=== PATIENT | female | born 1985 | race Caucasian/White ===

== ENCOUNTER 2019-04-15 15:08 | Outpatient (CLI) | payer MEDICAID ==
[~2019-04-15] VITALS: Ht 152.4 cm; Wt 80.9 kg
[~2019-04-15 15:08] MED LIST: MIDOL; MOTRIN; THERAFLU; TYLENOL
[2019-04-15 15:21] VITALS: BP 106/61; PULSE 93; RESP 17; Ht 152.4 cm; Wt 80.9 kg
--- NOTE | 2019-04-15 20:07 | PN ---
Triage Information Date/Time 04/15/2019 Reason for visit: DFHR Weeks of Gestation 37 weeks and 1 day /Para 2 para 0 Diabetes: none Hypertention: none Additional information 34-year-old G2, P0 with IUP at 37 weeks and 1 day presents with complaint of decreased movement for the past 3 days. She denies any leaking of fluid, vaginal bleeding the contractions. Denies any other Complaint. Denies any comp occasions during her course. Objective Vital Signs Date Temp Pulse Resp B/P (MAP) Pulse Ox O2 O2 Flow FiO2 Time Delivery Rate 04/15/19 98.1 93 17 106/61 15:21 (76) Heart Rate: 130's Heart Rate Comments Category 1 No contraction on the monitor noted Contractions: None Exam GA: Alert and oriented x4 does not appear to be in any acute distress Abdomen; Soft, gravid, fundal height consider gestational age NST: Category 1 No contraction on the monitor BPP: 07/01 NEHA: 11.2 Results/Medications Imaging Results PROCEDURE: Obstetrical ultrasound for biophysical profile CLINICAL INDICATION: Biophysical profile. . TECHNIQUE: Obstetrical ultrasound of the uterus for biophysical profile. Transabdominal views are obtained. COMPARISON: 04/15/2019 FINDINGS: Single intrauterine gestation. Presentation: Cephalic. Placenta: Posterior - right lateral No evidence of placental abruption. No evidence of placenta previa. breathing movement = 2/2 tone = 2/2 motion = 2/2 NEHA = 2/2 NEHA = 11.2 cm heart rate: 138 beats per minute IMPRESSION: Single intrauterine gestation. Biophysical profile 07/01 PROCEDURE: Obstetrical ultrasound. CLINICAL INDICATION: , evaluation. Pelvic pain. TECHNIQUE: Transabdominal sonographic images of the uterus obtained after first trimester, greater than 14 weeks gestation. Single intrauterine gestation present. Complete anatomic survey is not performed in this examination; if needed an additional dedicated examination can be performed for complete anatomic survey. COMPARISON: US 12/24/2018 FINDINGS: Single intrauterine gestation. There is a cephalic presentation. Measurements were made in order to determine age. The results are as follows: BPD = 35 weeks 4 day(s) HC = 35 weeks 1 day(s) AC = 39 weeks 1 day(s) FL = 37 weeks 6 day(s) NEHA (cm) = not measured Heart rate = 130 beats per minute The placenta is posterior - right lateral. There is no evidence for an abruption or placenta previa. Ovaries are not visualized. IMPRESSION: Single intrauterine gestation of approximately 37 weeks 0 days by ultrasound criteria. [place] estimated weight = 3346 g; 74 percentile for gestational age of 37 weeks 2 days. Disposition: Discharge Assessment/Plan IUP at 37 weeks and 1 day decreased movement testing reassuring Stable for discharge home. Labor precautions kick count discussed with patient Recommended patient to follow-up within 24 to 40 hours per primary OB office Return to triage in 3 days for NST/BPP Patient verbalized understanding. All questions answered to patient's best satisfaction LUIS ROBINS MD April 15, 2019 20:07
== END 2019-04-15 17:45 | disposition home or self-care (01) ==
LOC: OBT 15:08 → L-D 15:10 → OBT 17:45
PROVIDERS: ATTEND Obstetrics & Gynecology
DX: O36.8130 Decreased fetal movements, third trimester, not applicable or unspecified (principal); O09.523 Supervision of elderly multigravida, third trimester; Z3A.37 37 weeks gestation of pregnancy
CPT/HCPCS: 76815; 76818; Z7500; G0463

== ENCOUNTER 2019-04-18 14:18 | Outpatient (CLI) | payer MEDICAID ==
[~2019-04-18] VITALS: Ht 152.4 cm; Wt 82.9 kg
[2019-04-18] MEDS ORDERED: PREN-93 PO (14:59)
[2019-04-18 15:00] VITALS: BP 108/64; PULSE 85; RESP 18; Ht 152.4 cm; Wt 82.9 kg
--- NOTE | 2019-04-18 15:58 | TRIAGE ---
OB Triage Datetime Report Generated by CPN: 04/18/2019 15:57 Datetime: 04/18/2019 15:30 Stage of : OB Triage Maternal Assessment Level of Consciousness: Fully Conscious Labor Evaluation Frequency: 0 Monitor Mode: External Resting Tone Dunnell: Relaxed Heart Rate FHR Baseline Rate: 145 Monitor Mode: External US Variability: Moderate 6-25 bpm Accelerations: 15X15 Decelerations: None Category: Category I Pain Assessment Pain Scale: 0 Pain Goal: 3 Vaginal Exam Membrane Status: Intact Vaginal Bleeding: None Datetime: 04/18/2019 14:57 Assessment Type: Triage Maternal Assessment Level of Consciousness: Fully Conscious DTR's/Clonus: DTRs 2+; No Clonus Headache: Denies Blurred Vision: No Respiratory Effort: Unlabored; Regular Rhythm; Equal Expansion Breath Sounds, Left: Clear and Equal Breath Sounds, Right: Clear and Equal Nausea/Vomiting: Denies RUQ Epigastric Pain: Denies Lower Extremities Edema: None Degree: None Upper Extremities Edema: None Degree: None Facial Edema: None Fall Risk Assessment History of Falling: (0) No Secondary Diagnosis: (0) No Ambulatory Aid: (0) Bedrest/Nurse Assist IV Therapy: (0) No Gait: (0) Normal/Bedrest/Immobile Mental Status: (0) Oriented to Own Ability Fall Score: 0 Fall Risk Score Definition: No Risk: No action required Datetime: 04/18/2019 14:54 Time of Arrival: 04/18/2019 14:10 EGA: 37.5 Arrived By: Ambulatory Arrived From: Home Chief Complaint: PT. HERE FROM HOME FOR F/U NST/BPP FOR DFM Movement: Present Contractions: Denies/Absent Rupture of Membranes: Denies Vaginal Bleeding: None Vaginal Discharge: Denies Recent Sexual Intercouse: Denies Abdominal Trauma: Not Applicable Patient Complaints: None Time Provider Notified: 04/18/2019 15:30 Provider Notified: HADADIAN Initial Plan: NST/BPP Datetime: 04/18/2019 14:53 Monitor Mode: External Monitor Mode: External US Datetime: 04/15/2019 15:52 Pattern: Normal: <= 5 Contractions in 10 Minutes Resting Tone Dunnell: Relaxed Contraction Comments: no uc Heart Rate FHR Baseline Rate: 135 Monitor Mode: External US Variability: Moderate 6-25 bpm Accelerations: 15X15 Decelerations: None Category: Category I Comments: reactive nst Datetime: 04/15/2019 15:20 Assessment Type: Triage Maternal Assessment Level of Consciousness: Fully Conscious DTR's/Clonus: DTRs 2+; No Clonus Headache: Denies Blurred Vision: No Respiratory Effort: Unlabored; Regular Rhythm; Equal Expansion Breath Sounds, Left: Clear and Equal Breath Sounds, Right: Clear and Equal Nausea/Vomiting: Denies RUQ Epigastric Pain: Denies Lower Extremities Edema: None Degree: None Upper Extremities Edema: None Degree: None Facial Edema: None Fall Risk Assessment History of Falling: (0) No Secondary Diagnosis: (0) No Ambulatory Aid: (0) Bedrest/Nurse Assist IV Therapy: (0) No Gait: (0) Normal/Bedrest/Immobile Mental Status: (0) Oriented to Own Ability Fall Score: 0 Fall Risk Score Definition: No Risk: No action required Datetime: 04/15/2019 15:19 Time of Arrival: 04/15/2019 14:50 EGA: 37.2 Arrived By: Ambulatory Arrived From: Office Chief Complaint: C/O decreased fm for 3 days Movement: Decreased Contractions: Denies/Absent Patient Complaints: Other Time Provider Notified: 04/15/2019 17:10 Provider Notified: Initial Plan: nst, bpp, efw
--- NOTE | 2019-04-18 18:45 | PN ---
Triage Information Date/Time Reason for visit: NST and biophysical profile Weeks of Gestation 37 weeks and 5 days /Para Diabetes: none Hypertention: none Objective Vital Signs Date Temp Pulse Resp B/P (MAP) Pulse Ox O2 O2 Flow FiO2 Time Delivery Rate 04/18/19 98.2 85 18 108/64 Room Air 15:00 (79) Heart Rate: 130's Contractions: None Results/Medications Imaging Results Biophysical profile score is as follows: Breathing 2 Movements 2 Tone 2 Fluid volume 2 Amniotic fluid index = 8.4 cm Total biophysical profile score = 8/8 IMPRESSION: Biophysical profile score = 8/8 Disposition: Discharge Assessment/Plan 34 years old 2 para 010 with single intrauterine at 37 weeks and 5 days presented for antepartum testing.She states good movement. She denies nausea, vomiting, shortness of breath, chest pain, headache, visual changes, vaginal bleeding or LOF. -FHR: No sign of metabolic acidosis- Category I -Contractions: None -Ultrasound performed: Normal NEHA, BPP 8 out of 8 -Symptoms and sign of labor, preeclampsia, kick count discussed with patient, she voiced understanding. All of her questions answered. -Patient was discharged home in stable condition with the appropriate discharge instructions provided. I would like patient to have close follow-up with her [facility] physician or outpatient clinic in 1-2 days or return to triage for worsening symptoms or any other urgent concerns. WILBUR LR April 18, 2019 18:45
== END 2019-04-18 16:05 | disposition home or self-care (01) ==
LOC: OBT 14:18 → L-D 14:19 → OBT 16:05
PROVIDERS: ATTEND Obstetrics & Gynecology
DX: O36.8330 Maternal care for abnormalities of the fetal heart rate or rhythm, third trimester, not applicable or unspecified (principal); O09.523 Supervision of elderly multigravida, third trimester; Z3A.37 37 weeks gestation of pregnancy
CPT/HCPCS: 76818; Z7500; G0463

== ENCOUNTER 2019-05-04 22:16 | Outpatient (CLI) | payer MEDICAID ==
[~2019-05-04] VITALS: Ht 152.4 cm; Wt 84.7 kg
[~2019-05-04 22:16] MED LIST changes: -MIDOL; -MOTRIN; +PREN-93 PO; -THERAFLU; -TYLENOL
[2019-05-04 22:32] VITALS: BP 107/67; PULSE 87; RESP 18
[2019-05-04 22:33] VITALS: Ht 152.4 cm; Wt 84.7 kg
--- NOTE | 2019-05-05 01:41 | TRIAGE ---
OB Triage Datetime Report Generated by CPN: 05/05/2019 01:40 Datetime: 05/04/2019 23:39 Contraction Comments: TOCO REMOVED Comments: US REMOVED Datetime: 05/04/2019 23:38 Labor Evaluation Frequency: NONE Monitor Mode: External Resting Tone Loiza: Relaxed Heart Rate FHR Baseline Rate: 140 Monitor Mode: External US Variability: Moderate 6-25 bpm Accelerations: 15X15 Decelerations: None Category: Category I Datetime: 05/04/2019 23:00 Labor Evaluation Frequency: NONE Monitor Mode: External Resting Tone Loiza: Relaxed Heart Rate FHR Baseline Rate: 140 Monitor Mode: External US Variability: Moderate 6-25 bpm Accelerations: 15X15 Decelerations: None Category: Category I Datetime: 05/04/2019 22:37 Stage of : OB Triage Assessment Type: Triage Maternal Assessment Level of Consciousness: Keenly Alert, Responsive DTR's/Clonus: DTRs 2+; No Clonus Headache: Denies Blurred Vision: No Respiratory Effort: Unlabored; Regular Rhythm; Equal Expansion Breath Sounds, Left: Clear and Equal Breath Sounds, Right: Clear and Equal Nausea/Vomiting: Denies RUQ Epigastric Pain: Denies Lower Extremities Edema: None Degree: None Upper Extremities Edema: None Degree: None Facial Edema: None Temperature Route: Oral Fall Risk Assessment History of Falling: (0) No Secondary Diagnosis: (0) No Ambulatory Aid: (0) Bedrest/Nurse Assist IV Therapy: (0) No Gait: (0) Normal/Bedrest/Immobile Mental Status: (0) Oriented to Own Ability Fall Score: 0 Fall Risk Score Definition: No Risk: No action required Pain Assessment Pain Scale: 0 Pain Presence: None/Denies Pain Type: N/A Membrane Status: Intact Datetime: 05/04/2019 22:36 Time of Arrival: 05/04/2019 22:05 EGA: 40.0 Arrived By: Ambulatory Arrived From: Home Chief Complaint: PT PRESENTS TO TRIAGE WITH ORDERS FROM THE CLINIC FOR NST, EFW, NEHA, BPP, VE Movement: Present Contractions: Irregular Rupture of Membranes: Denies Vaginal Bleeding: None Vaginal Discharge: Denies Recent Sexual Intercouse: Denies Abdominal Trauma: Not Applicable Patient Complaints: Other Datetime: 05/04/2019 22:31 Vaginal Exam Dilatation (cms): 0.0 Effacement (%): 0 Station: -3 Exam By: EM Membrane Status: Intact Datetime: 05/04/2019 22:26 Contraction Comments: TOCO APPLIED Comments: US APPLIED Datetime: 04/18/2019 14:57 Fall Score: 0 Fall Risk Score Definition: No Risk: No action required Datetime: 04/18/2019 14:54 EGA: 37.5 Datetime: 04/15/2019 15:20 Fall Score: 0 Fall Risk Score Definition: No Risk: No action required Datetime: 04/15/2019 15:19 EGA: 37.2
--- NOTE | 2019-05-05 07:08 | PN ---
Triage Information Date/Time Reason for visit: Patient is here for NST and BPP Weeks of Gestation Patient is a 34-year-old 2 para 0 at 40 weeks of gestation with estimated date of delivery May 04, 2019 She is here for NST and BPP for postdates Patient reports positive movement, denies vaginal bleeding and leaking fluid, denies uterine contractions /Para 2 para 0 Diabetes: none Hypertention: none Objective Vital Signs Date Temp Pulse Resp B/P (MAP) Pulse Ox O2 O2 Flow FiO2 Time Delivery Rate 05/04/19 98.5 87 18 107/67 Room Air 22:32 (80) Heart Rate: 140's Heart Rate Comments heart rate tracing category 1 Contractions: None Results/Medications Imaging Results PROCEDURE: US OB CLINICAL INDICATION: . Evaluate size and dates. TECHNIQUE: Multiple transabdominal sonographic images of the pelvis and gravid uterus were obtained. The images were reviewed on a PACS workstation. COMPARISON: 04/18/2019. FINDINGS: Gestation: Single viable intrauterine gestation. Cardiac activity: 137 beats per minute. Presentation: Vertex. Placenta: Location: Posterior, grade II Appearance: No previa or abruption. Measurements: BPD = 9.19 cm, 37 weeks 2 days HC = 33.84 cm, 38 weeks 6 days AC = 35.32 cm, 39 weeks 2 days FL = 7.92 cm, 40 weeks 3 days Gestational Age: AUA estimated gestational age: 39 weeks 0 days LMP estimated gestational age: 40 weeks 0 days AUA estimated date of delivery: 05/11/2019 The EFW = 3716 g, 58.3%ile. IMPRESSION: Single live intrauterine gestation of 39 weeks 0 days by ultrasound criteria. Estimated date of delivery of 05/11/2019. .Singh Chan MD, MD Date Time Electronically viewed and signed by .Singh Chan MD, MD on 05/04/2019 23:18 .T/ CC: WILBUR LR [id number] PROCEDURE: Biophysical profile. CLINICAL INDICATION: Pelvic pain. TECHNIQUE: Multiple sonographic images of the pelvis were obtained with transabdominal technique. COMPARISON: 04/18/2019. FINDINGS: There is a single living intrauterine gestation with the fetus in a vertex position. The placenta is posterior in location, grade II. heart tones of 163 beats per minute are identified. There is normal amniotic fluid volume with an NEHA of 10.4 cm. breathing movements = 2 Gross body movements = 2 tone = 2 Qualitative AFV = 2 IMPRESSION: Biophysical profile 8 out of 8. .Singh Chan MD, MD Date Time Electronically viewed and signed by .Singh Chan MD, MD on 05/04/2019 23:19 .T/ CC: WILBUR LR [id number] Disposition: Discharge Assessment/Plan kick count instructions were given Labor precautions were given Patient instructed to return at 7 AM for induction of labor for postdates ASHELY TRAMMELL MD May 05, 2019 07:08
== END 2019-05-04 23:51 | disposition home or self-care (01) ==
LOC: OBT 22:16 → L-D 22:17 → OBT 23:51
PROVIDERS: ATTEND Obstetrics & Gynecology
DX: O36.8330 Maternal care for abnormalities of the fetal heart rate or rhythm, third trimester, not applicable or unspecified (principal); O48.0 Post-term pregnancy; O09.523 Supervision of elderly multigravida, third trimester; Z3A.40 40 weeks gestation of pregnancy
CPT/HCPCS: 76815; 76818; Z7500; G0463

== ENCOUNTER 2019-05-05 08:34 | Inpatient (IN) | payer MEDICAID ==
[~2019-05-05] VITALS: Ht 152.4 cm; Wt 84.8 kg
[2019-05-05 09:17] VITALS: Ht 152.4 cm; Wt 84.8 kg
[2019-05-05] MEDS ORDERED: CARBOPROST 250 MCG INJ IM PRN (09:30)
[2019-05-05] MEDS ORDERED: OXYTOCIN 30 UNITS/LR 500 ML IV PRN (09:30)
[2019-05-05] MEDS ORDERED: OXYTOCIN 30 UNITS/LR 500 ML IV SCH ×2 (09:30)
[2019-05-05] MEDS ORDERED: MISOPROSTOL 200 MCG TAB PR PRN (09:30)
[2019-05-05] MEDS ORDERED: LIDOCAINE 1% (MPF) 30 ML INJ INJ PRN (09:30)
[2019-05-05] MEDS ORDERED: BUTORPHANOL 2 MG INJ IV PRN ×2 (09:30)
[2019-05-05] MEDS ORDERED: METHYLERGONOVINE 0.2 MG INJ IM PRN (09:30)
[2019-05-05] MEDS ORDERED: IBUPROFEN 600 MG TAB PO PRN (09:30)
--- NOTE | 2019-05-05 09:41 | HP ---
Date/Time of Note Date/Time of Note DATE: 05/05/19 TIME: 09:38 OB - History Hx of Present Free Text/Dictation 34 years old 2 para 0-0-1-0 with single intrauterine at 40 weeks and 1 day admitted for induction of labor for postdate. She states good movement. She denies nausea, vomiting, shortness of breath, chest pain, headache, visual changes, vaginal bleeding or LOF. Chief Complaint: Scheduled for induction of labor Estimated Due Date: May 04, 2019 : 2 Para: 0 Spontaneous : 1 Therapeutic : 0 Care: Good Care Ultrasounds: Normal mid trimester US Obstetrical Complications: None Past Family/Social History * Past Medical, Surgical, Family and Obstetric Histories reviewed from chart. Blood Type: O+ Rubella: immune RPR/VDRL: Negative GBS Status: Negative OB Admission Exam Vital Signs Vital Signs Blood pressure 118/69, pulse rate 70/minutes, respiratory rate 16/minutes, tempe rature 98.4 Physical Exam HEENT: WNL Heart: Rhythm Normal Lungs: Clear Abdomen: WNL Extremities: Normal Reflexes: Normal Cervical Dilatation: None Effacement: 0% Station: -3 Membranes: Intact Heart Rate: 130's Accelerations: Accelerations Present Decelerations: No Decelerations Varibility: Moderate Contractions on Admission: >10 Minutes Apart Intensity: Mild OB Assessment/Plan Other plan: 34 years old 2 para 0-0-1-0 with single intrauterine at 40 weeks and 1 day admitted for induction of labor -FHR: No sign of metabolic acidosis- Category I -Continuous EFM, toco -CBC, blood type and screen -Analgesia options with R/B/A discussed in detail with patient -Epidural per patient request -Cytotec for induction of labor -Please see the orders -O+/Rubella: Immune -GBS: Negative Admission, procedures, expectations, risks and possible complications have been discussed in detail with the patient. Risk of vaginal delivery including but not limited to bleeding, infection, cervical laceration, placental retention, injury to fetus, blood transfusion, blood transfusion related infection, risk of anesthesia, adhesion, cervical laceration, episiotomy/laceration, possible delivery with risk of bleeding, infection, injury to other organs (bowel, bladder, ureter, vessels, nerves), injury to fetus, blood transfusion, blood transfusion related infection, risk of anesthesia, scar and hernia formation, needs for future , removal of uterus or any other indicated surgery discussed with the patient. She expressed understanding and repeats the risks. All of her questions were answered. She signed the informed consent. PHYSICIAN'S VERIFICATION OF INFORMED CONSENT The patient was counseled regarding the procedure, its indications, risks, potential complications and alternatives and any questions were answered. Consent was obtained. PLANNED PROCEDURE/TREATMENT: Vaginal delivery, episiotomy, repair of laceration possible delivery PHYSICIAN'S VERIFICATION OF INFORMED CONSENT FOR BLOOD TRANSFUSION: There is a reasonable possibility that blood transfusion will be necessary as a result of the patient's procedure. I have discussed the following with the patient/patient's legal corporate sales representative: An explanation of the benefits and risks of the transfusion of blood or blood products and the possible alternatives. All questions have been answered to the patient's satisfaction. INFORMED CONSENT:The patient has been informed of: The nature of the proposed care, treatment, services, medications, interventions or procedures. Potential benefits, risks or side effects, including potential problems related to recuperation. The likelihood of achieving care treatment and service goals. Reasonable alternatives to the proposed care, treatment and service. The relevant risks, benefits and side effects related to alternatives, including the possible results of not receiving care, treatment and services. When indicated, any limitations on the confidentiality of information learne d from or about the patient. If appropriate, the risks, benefits and alternatives of the drugs to be used for sedation/analgesia including moderate sedation. If appropriate, patient has been provided information on the risks, benefits and alternatives to the transfusion of blood and/or blood products. If appropriate, patient has been provided information regarding the Uriel lopez Blood Act. WILBUR LR May 05, 2019 09:41
[2019-05-05] MEDS: MISOPROSTOL 50 MCG CAPSULE PO SCH ×2 (13:05→20:07)
[2019-05-05] MEDS: LACTATED RINGER'S 1,000 ML IV SCH ×2 (13:05→22:20)
[2019-05-06] MEDS: MISOPROSTOL 50 MCG CAPSULE PO SCH ×3 (00:55→09:22)
[2019-05-06] MEDS: LACTATED RINGER'S 1,000 ML IV SCH ×3 (05:20→21:34)
[2019-05-06] MEDS ORDERED: MISOPROSTOL 50 MCG CAPSULE PO SCH (13:11)
[2019-05-06] MEDS: OXYTOCIN 30 UNITS/LR 500 ML IV SCH (19:08)
[2019-05-07] MEDS: MISOPROSTOL 50 MCG CAPSULE PO SCH (03:52)
[2019-05-07] MEDS ORDERED: LACTATED RINGER'S 1,000 ML IV PRN (03:53)
[2019-05-07] MEDS: LACTATED RINGER'S 1,000 ML IV SCH ×3 (05:42→19:24)
[2019-05-07] MEDS: OXYTOCIN 30 UNITS/LR 500 ML IV SCH (16:25)
[2019-05-07] MEDS ORDERED: AZITHROMYCIN 500MG/NS (PMX) 250 ML IVPB ONE (19:30)
[2019-05-07] MEDS ORDERED: CEFAZOLIN 2 GM/50 ML (PMX) 50 ML IVPB ONE (19:30)
[2019-05-07] MEDS ORDERED: LACTATED RINGER'S 1,000 ML IV ONE (21:20)
--- NOTE | 2019-05-07 21:20 | PREAC ---
Date/Time of Note Date/Time of Note DATE: 05/07/19 TIME: 21:18 Anesthesia Eval and Record Evaluation Time Pre-Procedure Interview DATE: 05/07/19 TIME: 21:18 Age 34 Sex female NPO: 8 hrs Preoperative diagnosis ; failed induction for postdates Planned procedure primary c section Past Medical History Past Medical History: Includes Pulm: Asthma : : (2), Para: (0) Surgery & Anesthesia Issues No known issue Meds Anticoagulation: No Beta Frank within 24 hr: No Reason Beta Frank not given: Pt. not on B-Frank Reported Medications Vit No.124/Iron/FA ( Vitamin Tablet) 1 Each Tablet, 1 EACH PO DAILY, TAB 04/18/19 Current Medications Lactated Ringer's 1,000 ml @ 125 mls/hr Q8H IV Last administered on 05/07/19at 19:24; Admin Dose 125 MLS/HR; Start 05/05/19 at 09:14 Butorphanol Tartrate (Stadol) 1 mg Q2H PRN IV .PAIN SCALE 1-5; Start 05/05/19 at 09:30 Butorphanol Tartrate (Stadol) 2 mg Q2H PRN IV .PAIN SCALE 6-10; Start 05/05/19 at 09:30 Lidocaine (Xylocaine 1% (Mpf)) 30 ml ONCE PRN INJ .EPISIOTOMY; Start 05/05/19 at 09:30 Oxytocin/Lactated Ringer's 500 ml @ 500 mls/hr ONCE POST IV ; Start 05/05/19 at 09:30 Oxytocin/Lactated Ringer's 500 ml @ 125 mls/hr POST IV ; Start 05/05/19 at 09:30 Ibuprofen (Motrin) 600 mg ONCE PRN PO .PAIN 1-5; Start 05/05/19 at 09:30 Oxytocin/Lactated Ringer's 500 ml @ 0 mls/hr ONCE PRN IV .VAGINAL BLEEDING; Start 05/05/19 at 09:30 Methylergonovine Maleate (Methergine) 0.2 mg ONCE PRN IM .VAGINAL BLEEDING; Start 05/05/19 at 09:30 Carboprost Tromethamine (Hemabate) 250 mcg ONCE PRN IM .VAGINAL BLEEDING; Start 05/05/19 at 09:30 Misoprostol (Cytotec) 1,000 mcg ONCE PRN MD .VAGINAL BLEEDING; Start 05/05/19 at 09:30 Oxytocin/Lactated Ringer's 500 ml @ 0 mls/hr Q0M IV Last administered on 05/07/19at 16:25; Admin Dose 1 MLS/HR; Start 05/06/19 at 18:00 Lactated Ringer's 1,000 ml @ 2,000 mls/hr Q30M PRN IV .ANESTHESIA; Start 05/07/19 at 03:53 Meds reviewed: Yes Allergies Coded Allergies: No Known Drug Allergies (Verified Allergy, Mild, 12/21/10) Allergies Reviewed: Yes Labs/Studies Labs Reviewed: Reviewed by anesthesiologist Result Diagram: 05/05/19 1000 test: N/A Pre-procedure Exam Airway: Adequate mouth opening, Adequate thyromental dist Mallampati: Mallampati II Teeth: Normal Lung: Normal Heart: Normal ASA Physical Status ASA physical status: 2 Emergency: None Planned Anesthetic Neuraxial: Spinal Planned Pain Management Sub-arachniod narcotics, Parenteral pain med Pre-operative Attestations Prior to commencing anesthesia and surgery, the patient was re-evaluated, there was verification of: *The patient's identity *The results of appropriate recent lab work and preoperative vital signs *The above evaluation not changing prior to induction *Anesthetic plan, risk benefits, alternative and complications discussed with patient/family; questions answered; patient/family understands, accepts and wishes to proceed. ANDREINA ESPINAL MD May 07, 2019 21:20
[2019-05-07] MEDS ORDERED: CITRIC ACID/NA CITRATE 30 ML CUP ONE (21:22)
[2019-05-07] MEDS ORDERED: FAMOTIDINE 20 MG INJ IV ONE (21:30)
[2019-05-07] MEDS ORDERED: CITRIC ACID/NA CITRATE 30 ML CUP PO ONE (21:30)
[2019-05-07] MEDS ORDERED: METOCLOPRAMIDE 10 MG INJ IV ONE (21:30)
[2019-05-07] MEDS ORDERED: morphine SULFATE/PF (10 MG/10 ML) INJ ONE (21:40)
[2019-05-07] MEDS ORDERED: EPHEDrine 25 MG/5 ML SYG ONE (21:58)
[2019-05-07] MEDS ORDERED: KETOROLAC 30 MG INJ IV PRN (22:00)
[2019-05-07] MEDS ORDERED: ONDANSETRON 4 MG INJ IV PRN (22:00)
[2019-05-07] MEDS ORDERED: DIPHENHYDRAMINE 50 MG INJ IV PRN (22:00)
[2019-05-07] MEDS ORDERED: MEPERIDINE 25 MG INJ IV PRN (22:00)
[2019-05-07] MEDS ORDERED: PROCHLORPERAZINE 10 MG INJ IV PRN (22:00)
[2019-05-07] MEDS ORDERED: EPHEDrine 25 MG/5 ML SYG IV PRN (22:00)
[2019-05-07] MEDS ORDERED: FENTAnyl 50 MCG/ML VIAL IV PRN ×3 (22:00)
[2019-05-07] MEDS ORDERED: HYDROmorphONE 1 MG/5 ML IV SYRINGE IV PRN ×3 (22:00)
[2019-05-07] MEDS ORDERED: ONDANSETRON 4 MG INJ ONE (22:16)
[2019-05-07] MEDS ORDERED: PHENYLephrine (100 MCG/ML) 10ML SYG ONE (22:16)
[2019-05-07] MEDS ORDERED: MIDAZOLAM 1 MG/ML 2 ML INJ ONE (22:29)
[2019-05-07] MEDS ORDERED: MEPERIDINE 100 MG INJ ONE (22:56)
[2019-05-07] MEDS ORDERED: OXYTOCIN 30 UNITS/LR 500 ML IV ONE (23:00)
--- NOTE | 2019-05-07 23:30 | QN ---
Documentation Comment 34 years old 2 para 0-0-1-0 with single intrauterine at 40 weeks and 3 days admitted for induction of labor. She received the 6 dose of Cytotec and then Pitocin with no cervical dilation. Vaginal delivery versus delivery discussed in detail with patient and her partner. She would like to have delivery. The risk of delivery including but not limited to bleeding, infection, injury to other organs (bowel, bladder, ureter, vessels, nerves), injury to fetus, blood transfusion, blood transfusion related infection, risk of anesthesia, adhesion, needs for future , removal of uterus or any other indicated surgery was discussed with the patient and her fam kevin. She expressed understanding. All of her questions were answered. She signed the informed consent. PHYSICIAN'S VERIFICATION OF INFORMED CONSENT The patient and her partner counseled regarding the procedure, its indications, risks, potential complications and alternatives and any questions were answered. Consent was obtained. PLANNED PROCEDURE/TREATMENT: delivery with possible using vacuum/forceps and any other indicated surgery PHYSICIAN'S VERIFICATION OF INFORMED CONSENT FOR BLOOD TRANSFUSION: There is a reasonable possibility that blood transfusion will be necessary as a result of the patient's procedure. I have discussed the following with the patient/patient's legal new accounts banking representative: An explanation of the benefits and risks of the transfusion of blood or blood products and the possible alternatives. All questions have been answered to the patient's satisfaction. INFORMED CONSENT:The patient has been informed of: The nature of the proposed care, treatment, services, medications, inte rventions or procedures. Potential benefits, risks or side effects, including potential problems related to recuperation. The likelihood of achieving care treatment and service goals. Reasonable alternatives to the proposed care, treatment and service. The relevant risks, benefits and side effects related to alternatives, including the possible results of not receiving care, treatment and services. When indicated, any limitations on the confidentiality of information learned from or about the patient. If appropriate, the risks, benefits and alternatives of the drugs to be used for sedation/analgesia including moderate sedation. If appropriate, patient has been provided information on the risks, benefits and alternatives to the transfusion of blood and/or blood products. If appropriate, patient has been provided information regarding the Uriel Sandhya Blood Act. WILBUR LR May 07, 2019 23:30
--- NOTE | 2019-05-07 23:32 | PAC ---
Date/Time of Note Date/Time of Note DATE: 05/07/19 TIME: 23:31 Post-Anesthesia Notes Post-Anesthesia Note Activity: WNL Respiratory function: WNL Cardiovascular function: WNL Mental status: Baseline Pain reasonably controlled: Yes Hydration appropriate: Yes Nausea/Vomiting absent: Yes Comments BP: 107/64 HR: 90 RR: 15 T: 97.8 SaO2: 96% room air ANDREINA ESPINAL MD May 07, 2019 23:32
--- NOTE | 2019-05-07 23:35 | OPR ---
Operative Report Planned Procedure Procedure date May 07, 2019 Procedure(s) Primary low transverse delivery Performed by see signature line Haircutter: ASHELY TRAMMELL MD Anesthesiologist: ANDREINA ESPINAL MD Pre-procedure diagnosis 34 years old 2 para 0-0-1-0 with single intrauterine at 40 weeks and 3 days with failed induction [id number] Anesthesia Type: [id number] spinal Post-Procedure Post-procedure diagnosis 34 years old 2 para 0-0-1-0 with single intrauterine at 40 weeks and 3 days with failed induction Findings 1. Normal uterus, fallopian tubes and ovaries 2. Viable female in cephalic presentation. 8 9 at one minute and in 5 minutes. Weight: 9 pounds 6 ounces - 4240 g. Time of delivery: 22:24 3. Placenta with three vessel cord 4. Amniotic fluid - Clear Estimated Blood Loss: 600 - 700 mls Specimen(s) none Grafts/Implant(s) none Complication(s) none Pt Condition post procedure: stable Disposition: PACU Procedure Description INDICATION AND HISTORY: A 34 years old 2 para 0-0-1-0 with single intrauterine at 40 weeks and 3 days with failed induction. The risk of delivery including but not limited to bleeding, infection, injury to other organs (bowel, bladder, ureter, vessels, nerves), injury to fetus, blood transfusion, blood transfusion related infection, risk of anesthesia, adhesion, needs for future , removal of uterus or any other indicated surgery was discussed with the patient and her family. She expressed understanding. All of her questions were answered. She signed the informed consent. DESCRIPTION OF OPERATION: The patient was taken to the operating room, where she was identified and the procedure was verified. The patient received two gram of Ancef 30 minutes prior to surgery. Spinal anesthesia was placed. The patient placed in the dorsal supine position with a left tilt. The heart rate was 155 bpm. The patient was then prepped and draped in the normal sterile fashion. A Pfannenst iel skin incision was made and carried down to the fascia with Bovie. The fascia was incised in the midline and the fascial incision was carried laterally with Marie scissors. The superior portion of the fascial incision was then grasped with Claudia clamps and tented up and dissected off the underlying rectus muscle with sharp dissection. The lower portion of the fascial incision was then made in a similar fashion. The rectus muscle was and the peritoneum was entered. The peritoneal incision was then stretched and a bladder blade was inserted. Then, an incision was made in the lower uterine segment in a transverse fashion with a knife and extended bluntly. The was delivered atraumatically in cephalic presentation with the above findings. The umbilical cord was clamped and cut. The neonatology resuscitation team was present and the baby was handed to them. A cord blood sample was obtained for further evaluation. The placenta and membrane, which appeared normal were Removed. The uterus was exteriorized and cleared of all clot and debris. The uterus was then closed in a two layer fashion with 0-Monocryl. At the time of closure, hemostasis was noted. The gutters were irrigated. The peritoneum was reapproximated with 3-0 *Vicryl. The muscle was reapproximated with 3-0 Vicryl. The fascia was approximated with 0-Vicryl in a running fashion. The subcutaneous tissue was re approximated with 3-0 vicryl. The skin was closed with 4-0 Monocryl. All instruments, sponges and needle counts were correct x3. The patient tolerated the procedure well. She transferred to the recovery room in stable condition. WILBUR LR May 07, 2019 23:35
[2019-05-08 02:07] VITALS: BP 119/55; PULSE 76; RESP 20
[2019-05-08] MEDS: DEXTROSE 5%-LR 1,000 ML IV SCH ×3 (02:12→18:12)
[2019-05-08] MEDS ORDERED: OXYTOCIN 30 UNITS/LR 500 ML IV SCH (02:12)
[2019-05-08] MEDS ORDERED: KETOROLAC 30 MG INJ IV PRN (02:30)
[2019-05-08] MEDS ORDERED: METHYLERGONOVINE 0.2 MG TAB PO PRN (02:30)
[2019-05-08] MEDS ORDERED: HYDROmorphONE 0.5 MG/0.5 ML SYG IV PRN ×2 (02:30)
[2019-05-08] MEDS ORDERED: METHYLERGONOVINE 0.2 MG INJ IM PRN (02:30)
[2019-05-08] MEDS ORDERED: DIPHENHYDRAMINE 50 MG INJ IV PRN (02:30)
[2019-05-08] MEDS ORDERED: MISOPROSTOL 200 MCG TAB PR PRN (02:30)
[2019-05-08] MEDS ORDERED: CARBOPROST 250 MCG INJ IM PRN (02:30)
[2019-05-08] MEDS ORDERED: OXYTOCIN 30 UNITS/LR 500 ML IV PRN (02:30)
[2019-05-08] MEDS ORDERED: MAGNESIUM HYDROXIDE 30ML CUP PO PRN (02:30)
[2019-05-08] MEDS ORDERED: ZOLPIDEM 5 MG TAB PO PRN (02:30)
[2019-05-08] MEDS ORDERED: ONDANSETRON 4 MG INJ IV PRN (02:30)
[2019-05-08] MEDS ORDERED: NALOXONE (0.4 MG/ML) INJ IV PRN (02:30)
[2019-05-08] MEDS ORDERED: LANOLIN HPA 1 PKT TOP PRN (02:30)
[2019-05-08 04:00] VITALS: BP 111/69; PULSE 68; RESP 20
[2019-05-08 07:30] VITALS: BP 117/73; PULSE 73; RESP 18
[2019-05-08] MEDS: SENNA/DOCUSATE NA (8.6MG/50MG) TAB PO SCH ×2 (09:00→20:32)
[2019-05-08] MEDS ORDERED: DIPHTH/TET/ACEL PERTUSS (ADULT) 0.5 ML VIAL IM* ONE (11:00)
[2019-05-08 12:00] VITALS: BP 115/71; PULSE 76; RESP 18
--- NOTE | 2019-05-08 13:40 | PN ---
Date/Time of Note Date/Time of Note DATE: 05/08/19 TIME: 13:37 OB Subjective Subjective Subjective Vaginal bleeding moderate. Pain controlled with p.o. pain medication. Breast- feeding. Passed flatus. Tolerated clear liquid diet. Ambulating. OB Objective Objective Objective Appearance: Alert and oriented x4 does not appear to be in any acute distress Abdomen: Soft, fundus firm and palpable below the umbilicus Incision: Clean dry and intact Breast: No evidence of mastitis or fissure Extremities: No cord no click 1+ bilateral symmetric edema Lungs: Clear to auscultation bilaterally CV: RRR VS - Last 72 Hours, by Label Date Temp Pulse Resp B/P (MAP) Pulse Ox O2 O2 Flow FiO2 Time Delivery Rate 05/08/19 98.0 76 18 115/71 98 Room Air 12:00 (86) 05/08/19 97.8 73 18 117/73 99 Room Air 07:30 (88) 05/08/19 97.8 68 20 111/69 95 Room Air 04:00 (83) 05/08/19 98.3 76 20 119/55 97 Room Air 02:07 (76) Laboratory Tests Test 05/08/19 06:34 White Blood Count 11.5 #H Red Blood Count 3.91 L Hemoglobin 11.1 L Hematocrit 34.3 L Mean Corpuscular Volume 87.7 Mean Corpuscular Hemoglobin 28.4 L Mean Corpuscular Hemoglobin Concent 32.4 Red Cell Distribution Width 14.3 Platelet Count 182 Mean Platelet Volume 10.5 H Immature Granulocytes % 0.400 Neutrophils % 78.1 H Lymphocytes % 10.8 L Monocytes % 10.4 Eosinophils % 0.1 Basophils % 0.2 Nucleated Red Blood Cells % 0.0 Immature Granulocytes # 0.050 H Neutrophils # 9.0 H Lymphocytes # 1.2 Monocytes # 1.2 H Eosinophils # 0.0 Basophils # 0.0 Nucleated Red Blood Cells # 0.0 OB Assessment/Plan Other Assessment: Status post section for failed induction at 40 weeks LGA Doing well Continue routine postop care Continue ambulation, Using incentive spirometer Advance diet LUIS ROBINS MD May 08, 2019 13:40
[2019-05-08 16:00] VITALS: BP 101/51; PULSE 81; RESP 18
[2019-05-08 20:30] VITALS: BP 115/77; PULSE 74; RESP 19
[2019-05-09] MEDS: HYDROCODONE/APAP (5/325) TAB PO SCH ×3 (01:09→16:43)
[2019-05-09] MEDS ORDERED: HYDROCODONE/APAP (5/325) TAB PO PRN (02:30)
[2019-05-09 04:30] VITALS: BP 112/73; PULSE 77; RESP 18
[2019-05-09] MEDS: IBUPROFEN 800 MG TAB PO SCH ×3 (05:00→16:42)
[2019-05-09] MEDS ORDERED: IBUPROFEN 800 MG TAB PO SCH (06:00)
[2019-05-09] MEDS ORDERED: HYDROCODONE/APAP (5/325) TAB PO SCH (06:00)
[2019-05-09] MEDS: HYDROCODONE/APAP (5/325) TAB PO PRN (07:56)
[2019-05-09 08:00] VITALS: BP 126/65; PULSE 84; RESP 18
[2019-05-09] MEDS: SENNA/DOCUSATE NA (8.6MG/50MG) TAB PO SCH ×2 (09:48→20:04)
[2019-05-09] MEDS: DEXTROSE 5%-LR 1,000 ML IV SCH (10:12)
--- NOTE | 2019-05-09 12:29 | QN ---
Documentation Comment POD#2 is stable afebrile tolerates diet No VB +BM +voids VS stable Gen NAD Abd soft NT ND Dressing to be removed Genitalia No blood at perineum --->Discharge plan tomorrow -->Close Observation ELMA SAGASTUME M.D. May 09, 2019 12:29
[2019-05-09 15:50] VITALS: BP 121/70; PULSE 69; RESP 18
[2019-05-09 20:00] VITALS: BP 119/70; PULSE 78; RESP 19
[2019-05-10] MEDS: IBUPROFEN 800 MG TAB PO SCH ×3 (00:26→17:03)
[2019-05-10 04:00] VITALS: BP 105/68; PULSE 67; RESP 18
[2019-05-10] MEDS: HYDROCODONE/APAP (5/325) TAB PO SCH ×3 (04:08→17:00)
[2019-05-10 08:00] VITALS: BP 109/73; PULSE 67; RESP 18
[2019-05-10] MEDS: SENNA/DOCUSATE NA (8.6MG/50MG) TAB PO SCH (08:26)
[2019-05-10] MEDS ORDERED: MEASLES,MUMPS,RUBELLA VACCINE INJ SC* ONE (09:00)
[2019-05-10] MEDS ORDERED: DIPHTH/TET/ACEL PERTUSS (ADULT) 0.5 ML VIAL IM* ONE (09:00)
[2019-05-10] MEDS: HYDROCODONE/APAP (5/325) TAB PO PRN (14:19)
[2019-05-10 15:50] VITALS: BP 105/62; PULSE 65; RESP 16
[2019-05-10] MEDS ORDERED: BISACODYL 10 MG SUPP PR ONE (16:03)
--- NOTE | 2019-05-10 17:44 | DS ---
Date/Time of Note Date/Time of Note DATE: 05/10/19 TIME: 17:43 Obstetrical Discharge Record Final Diagnosis Final Diagnosis: Term delivered Other Final Diagnosis Postop day #3 Status post repeat Patient stable and afebrile Patient is ambulating, tolerating regular diet, voiding and positive flatus Vital signs stable Hematology - 72 Hrs Test 05/08/19 06:34 Hematocrit 34.3 % (37.0-47.0) L Hemoglobin 11.1 g/dl (12.0-16.0) L Mean Corpuscular Hemoglobin 28.4 pg (29.0-33.0) L Mean Corpuscular Hemoglobin Concent 32.4 g/dl (32.0-37.0) Mean Corpuscular Volume 87.7 fl (82.0-101.0) Mean Platelet Volume 10.5 fl (7.4-10.4) H Platelet Count 182 10^3/UL (140-415) Red Blood Count 3.91 10^6/ul (4.20-5.40) L Red Cell Distribution Width 14.3 % (11.5-14.5) White Blood Count 11.5 10^3/ul (4.8-10.8) #H Urine Results - 72 Hrs Test 05/10/19 16:36 Urine Color STRAW (YELLOW) Urine Clarity CLEAR (CLEAR) Urine pH 7.0 (5.0-9.0) Urine Specific [place] 1.006 (1.003-1.030) Urine Ketones NEGATIVE mg/dL (NEGATIVE) Urine Nitrite NEGATIVE mg/dL (NEGATIVE) Urine Bilirubin NEGATIVE mg/dL (NEGATIVE) Urine Urobilinogen NEGATIVE mg/dL (NEGATIVE) Urine Leukocyte Esterase NEGATIVE Melanie/ul Urine Microscopic RBC 1 /HPF (0-5) Urine Microscopic WBC 0 /HPF (0-5) Urine Hemoglobin 2+ mg/dL (NEGATIVE) H Urine Glucose NEGATIVE mg/dL (NEGATIVE) Urine Total Protein NEGATIVE mg/dl (NEGATIVE) Abdomen soft, fundus firm Incision clean, dry, intact Extremities nontender Assessment and plan Patient stable and doing well Prescription for Macrobid was given Plan to discharge home Patient instructed to follow-up with PIPE OUT WORKER in 2 and 6 weeks Section Section: Primary Condition on Discharge Physical Assessment Last Vitals: VS - Last 72 Hours, by Label Date Temp Pulse Resp B/P (MAP) Pulse Ox O2 O2 Flow FiO2 Time Delivery Rate 05/10/19 97.8 65 16 105/62 15:50 (76) 05/10/19 98.2 67 18 109/73 Room Air 08:00 (85) 05/10/19 99.0 67 18 105/68 Room Air 04:00 (80) 05/09/19 98.2 78 19 119/70 Room Air 20:00 (86) 05/09/19 98.2 69 18 121/70 Room Air 15:50 (87) 05/09/19 97.7 84 18 126/65 Room Air 08:00 (85) 05/09/19 98.4 77 18 112/73 Room Air 04:30 (86) 05/08/19 98.1 74 19 115/77 98 Room Air 20:30 (90) 05/08/19 98.4 81 18 101/51 99 Room Air 16:00 (68) 05/08/19 98.0 76 18 115/71 98 Room Air 12:00 (86) 05/08/19 97.8 73 18 117/73 99 Room Air 07:30 (88) 05/08/19 97.8 68 20 111/69 95 Room Air 04:00 (83) 05/08/19 98.3 76 20 119/55 97 Room Air 02:07 (76) Voiding: Yes Bowel Movement: Yes Breast: Soft, non-tender Fundus: Firm Calf Tenderness: No Patient Condition: Good Copies To: CC: WILBUR LR BAHAREH MD May 10, 2019 17:44
--- NOTE | 2019-05-11 18:53 | DELSUM ---
Delivery Summary A-C Datetime Report Generated by CPN: 05/11/2019 18:53 DELIVERY PERSONNEL Vehicle Glass Technician: Isaura Bower MATERNAL INFORMATION Delivery Anesthesia: Spinal Medications in Delivery: SEE ANESTHESIOLOGIST FLOWSHEET Delivery QBL (ml): 600 Placenta Cultured: No Maternal Complications: Prolong Labor >20Hrs LABOR SUMMARY EDC: 05/04/2019 00:00 No. Babies in Womb: 1 Attempted: No Labor Anesthesia: None LABOR INFORMATION Reason for Induction: Postterm Onset of Labor: 05/06/2019 19:00 Cervical Ripening Agents: Cytotec @ Oxytocin: Induction Group B Beta Strep: Negative Antibiotics # of Doses: 2 Antibiotics Time of Last Dose: 05/07/2019 21:41 Steroids Given: None Reason Steroids Not Administered: Not Applicable MEMBRANES Membranes Rupture Method: Artificial Rupture of Membranes: 05/07/2019 22:23 Length of Rupture (hr): 0.02 Amniotic Fluid Color: Clear Amniotic Fluid Amount: Small Amniotic Fluid Odor: None STAGES OF LABOR Stage 3 hr: 0 Stage 3 min: 1 Total Time in Labor hr: 27 Total Time in Labor min: 25 CSECTION DELIVERY Primary Indication: Failed Induction Other Secondary Indication: FAILURE TO PROGRESS CSection Urgency: Elective CSection Incidence: Primary Labor: Labor Elective: Elective CSection Incision: Lower Uterine Transverse BABY A INFORMATION Infant Delivery Date/Time: 05/07/2019 22:24 Method of Delivery: Born in Route : No : N/A Forceps: N/A Vacuum Extraction: N/A Shoulder Dystocia : N/A SHOULDER DYSTOCIA BABY A Infant Delivery Date/Time: 05/07/2019 22:24 PRESENTATION/POSITION BABY A Presentation: Cephalic Cephalic Presentation: Vertex Vertex Position: Left Occipital Transverse Breech Presentation: N/A PLACENTA INFORMATION BABY A Placenta Delivery Time : 05/07/2019 22:25 Placenta Method of Delivery: Manual Removal Placenta Status: Delivered SCORES BABY A Heart Rate 1 min: >100 bpm Resp Effort 1 min: Good Cry Reflex Irritability 1 min: Cough/Sneeze/Pulls Away Muscle Tone 1 min: Active Motion Color 1 min: Blue/Pale Resuscitation Effort 1 min: Tactile Stimulation; Oxygen SCORE 1 MIN: 8 Heart Rate 5 min: >100 bpm Resp Effort 5 min: Good Cry Reflex Irritability 5 min: Cough/Sneeze/Pulls Away Muscle Tone 5 min: Active Motion Color 5 min: Body [place], Extremit Blue Resuscitation Effort 5 min: Tactile Stimulation SCORE 5 MIN: 9 INFANT INFORMATION BABY A Gestational Age at Delivery: 40.3 Gestational Status: Full Term- 39- 40.6 Weeks Outcome : Liveborn Condition : Stable Infant Sex: Female IDENTIFICATION/MEDS BABY A ID Band Number: [id number] ID Band Location: Right Leg; Left Arm Sensor Applied: Yes Sensor Number: [id number] Sensor Location : Cord Clamp Vitamin K Given : Not Given Erythromycin Given: Not Given WEIGHT/LENGTH BABY A Birthweight (gm): 4240 Weight (lb): 9 Weight (oz): 6 Infant Length (in): 21.50 Length (cm): 54.61 CORD INFORMATION BABY A No. Cord Vessels: 3 Nuchal Cord : N/A Cord Blood Taken: Yes Banking/Donate Info: NO Infant Suction: Mouth; Nose ASSESSMENT BABY A Infant Complications: None Physical Findings at Delivery: Within Normal Limits Physical Findings- Other: SCRATCH ON RIGHT FOOT Respirations: Appears Normal Infant Care By: MAYFIELD. Luisito RN Transferred To: Remains with Mother
== END 2019-05-10 18:53 | disposition home or self-care (01) | DRG 788 ==
LOC: L-D 08:34 → PP1 05-08 02:13
PROVIDERS: ADMIT Obstetrics & Gynecology; ATTEND Obstetrics & Gynecology
PROC: 10D00Z1 Extraction of Products of Conception, Low, Open Approach (ICD-10-PCS; principal; 2019-05-07 19:00)
DX: O48.0 Post-term pregnancy (principal); O61.9 Failed induction of labor, unspecified; Z3A.40 40 weeks gestation of pregnancy; Z37.0 Single live birth
CPT/HCPCS: 76815; 81001; 85025; 85610; 85730; 86592; 86850; 86900; 86901; 87340; 90715; 99464; J0456; J0690; J1885; J2175; J2250; J2274; J2370; J2405; J2590; J2765; J7120; J7121

== ENCOUNTER 2019-05-14 15:45 | Emergency (ER) | payer MEDICAID ==
[~2019-05-14] VITALS: Ht 152.4 cm; Wt 73.5 kg
[2019-05-14 16:04] VITALS: Ht 152.4 cm; Wt 73.5 kg
[2019-05-14] MEDS ORDERED: ACETAMINOPHEN 325 MG TAB PO ONE (17:00)
--- NOTE | 2019-05-14 18:26 | QN ---
Documentation Comment ER ( amanda ybarra called for OB consultation for patient who underwent primary c/s for failed induction on 05/07/19 c/o surgical pain ,not on any pain reliever also c/o dysuria advise Dr ybarra for u/a and urine culture and sensitivities motrin for pain VICTORINO DOTSON MD May 14, 2019 18:26
[2019-05-14] MEDS ORDERED: IBUP-1542 PO (18:49)
--- NOTE | 2019-05-14 19:02 | ERD ---
ER Documentation Chief Complaint Chief Complaint REQUESTS EVALUATION OF INCISION HPI Patient is a 34-year-old female who presents for burning pain at the site. She had a done 7 days ago. She has had no fevers and no redness around the area. She is taking antibiotics currently for UTI. Doctor Hadadian was her OB doctor. ROS All systems reviewed and are negative except as per history of present illness. Medications Home Meds Active Scripts Ibuprofen* (Motrin*) 600 Mg Tab, 600 MG PO Q6H PRN for PAIN AND OR ELEVATED TEMP, #30 TAB Prov:YAW STOLL MD 05/14/19 Reported Medications Vit No.124/Iron/FA ( Vitamin Tablet) 1 Each Tablet, 1 EACH PO DAILY, TAB 04/18/19 Allergies Allergies: Coded Allergies: No Known Drug Allergies (Verified Allergy, Mild, 05/14/19) PMhx/Soc Medical and Surgical Hx: pt denies Medical Hx History of Surgery: No Anesthesia Reaction: No Hx Neurological Disorder: No Hx Respiratory Disorders: No Hx Cardiac Disorders: No Hx Psychiatric Problems: No Hx Miscellaneous Medical Probl: No Hx Alcohol Use: No Hx Substance Use: No Hx Tobacco Use: No Smoking Status: Never smoker FmHx Family History: No diabetes Physical Exam Vitals Vital Signs Date Temp Pulse Resp B/P (MAP) Pulse Ox O2 O2 Flow FiO2 Time Delivery Rate 05/14/19 97.8 82 16 118/67 95 16:04 (84) Physical Exam Const: No acute distress Head: Atraumatic Eyes: Normal Conjunctiva ENT: Normal External Ears, Nose and Mouth. Neck: Full range of motion. No meningismus. Resp: Clear to auscultation bilaterally Cardio: Regular rate and rhythm, no murmurs Abd: Soft, non tender, non distended. Normal bowel sounds Skin: incision in the lower abdomen is clean, dry, and intact Back: No midline or flank tenderness Ext: No cyanosis, or edema Neur: Awake and alert Psych: Normal Mood and Affect Results 24 hrs Laboratory Tests Test 05/14/19 16:59 05/14/19 17:00 POC Beta HCG, Qualitative NEGATIVE Bedside Urine pH (LAB) 6.5 Bedside Urine Protein (LAB) Negative Bedside Urine Glucose (UA) Negative Bedside Urine Ketones (LAB) Negative Bedside Urine Blood 1+ Bedside Urine Nitrite (LAB) Negative Bedside Urine Leukocyte Esterase (L Negative Current Medications Medications Dose Sig/Gisela Start Time Status Last (Trade) Ordered Route PRN Stop Time Admin Dose Reason Admin 650 mg ONCE ONCE 05/14/19 DC 05/14/19 Acetaminophen PO 17:00 16:54 (Tylenol 05/14/19 17:01 Tab) Procedures/MDM Ultrasound of the pelvis shows no retained products or surgical process at this time. Urine dip negative for infection. Patient is a 34-year-old female presents with pain at the site. She was seen by Dr. Flores from gynecology and we agree that the site does not appear infected. I believe the patient is likely having postop pain. She was not given any pain medicines post and Dr. Flores requested that I give her ibuprofen 600 mg which I have ordered. The patient will be discharged and can return for any worsening symptoms. She should follow-up with Dr. Lr. Departure Diagnosis: Primary Impression: Post-op pain Condition: Fair Patient Instructions: Post Op Wound Check, Pain Referrals: WILBUR LR Additional Instructions: Specialist:Usted tiene gladis condicin mdica que requiere que dominga a un especialista dentro de los prximos 1-2 [place].POR FAVOR,CON HERNANDEZ SEGUIMIENTO DE PRIMARIA PHSICIAN refferal. SI USTED NO TIENE UN MDICO GENERAL Y / O USTED NO PUEDE PAGAR che a un mdico,los siguientes crowe RECURSOS sido suministrado a usted. ES HERNANDEZ RESPONSABILIDAD PARA SER VISTOS POR EL ESPECIALISTA: YAW STOLL MD May 14, 2019 19:01
[2019-05-14 19:40] VITALS: BP 115/76; PULSE 78; RESP 16
== END 2019-05-14 19:40 | disposition home or self-care (01) ==
LOC: E/R 15:45
DX: G89.18 Other acute postprocedural pain (principal)
CPT/HCPCS: 76856; 81003; 81025; Z7502; Z7610